=== PATIENT | male | born 1940 | race African-American/Black ===

== ENCOUNTER 2016-03-30 09:41 | Inpatient (IN) | payer MEDICARE, MEDICAID ==
[2016-03-24 11:28] LABS: APPEARANCE,URINE CLEAR; BILIRUBIN,URINE NEGATIVE (NEGATIVE); GLUCOSE, URINE NEGATIVE (NEGATIVE); KETONES,URINE NEGATIVE (NEGATIVE); LEUKOCYTE ESTERASE,URINE NEGATIVE (NEGATIVE); NITRITE,URINE NEGATIVE (NEGATIVE); PROTEIN,URINE NEGATIVE (NEGATIVE); URINE SPECIFIC GRAVITY 1.016; UROBILINOGEN,URINE NEGATIVE mg/dL (<2.0)
[2016-03-24 11:29] LABS: HEMATOCRIT 33.3 % (37.9-51.0); HEMOGLOBIN 11.4 g/dL (13.5-17.0); HGB HCT DIFFERENCE 0.9; MEAN CORPUSCULAR HEMOGLOBIN 30.1 pg (27.0-33.4); MEAN CORPUSCULAR HGB CONC 34.2 g/dL (32.0-36.0); MEAN CORPUSCULAR VOLUME 88 fl (80-97); RED BLOOD COUNT 3.78 10^6/uL (4.35-5.55); RED CELL DISTRIBUTION WIDTH 14.1 % (11.5-14.0); WHITE BLOOD COUNT 4.8 10^3/uL (4.0-10.5)
[2016-03-24 11:41] LABS: ANION GAP 12 (5-19); BLOOD UREA NITROGEN 26 mg/dL (7-20); CALCIUM 9.7 mg/dL (8.4-10.2); CARBON DIOXIDE 26 mmol/L (22-30); CHLORIDE 108 mmol/L (98-107); CREATININE RESULT 1.19 mg/dL (0.52-1.25); GLUCOSE 104 mg/dL (75-110); POTASSIUM 4.6 mmol/L (3.6-5.0); SODIUM 145.8 mmol/L (137-145)
[~2016-03-30 09:41] MED LIST: BUPIVACAINE INJ/PF LIPOSOME/PF 266 MG/20 ML SDV IJ PRN; BUPIVACAINE INJ/PF LIPOSOME/PF 266 MG/20 ML SDV ONE; CEFAZOLIN INJ 1 GM VIAL ONE; IBUPROFEN 800 MG in NORMAL SALINE 250 ML IV PRN; LACTATED RINGERS 1000 ML IV PRN; LANSOPRAZOLE 15 MG TAB.RAP.DR PO PRN; LIDOCAINE 0.5% INJ-PF (5 MG/ML) 50 ML SDV SUBCUT PRN; OXYCODONE HCL SR 10 MG TABLET PO PRN; SCOPOLAMINE HYDROBROMIDE 1.5 MG PATCH.TD72 TD PRN; THROMBIN (BOVINE) 5000 UNIT EPITAXIS KIT ONE; THROMBIN (BOVINE) TOPICAL 20000 UNIT VIAL ONE; VANCOMYCIN HCL 1,000 MG in DEXTROSE 5%-WATER 250 ML IV PRN
[2016-03-30] MEDS ORDERED: MIDAZOLAM 2 MG/2 ML INJ ONE ×2 (11:02)
[2016-03-30] MEDS ORDERED: FENTANYL CITRATE INJ/PF 100 MCG/2 ML AMPUL ONE (11:02)
[2016-03-30] MEDS ORDERED: PROPOFOL INJ 200 MG/20 ML VIAL IV ONE (11:03)
[2016-03-30] MEDS ORDERED: TRANEXAMIC ACID INJ/PF 1,000 MG/10 ML SDV IV ONE ×2 (11:37→15:10)
[2016-03-30] MEDS ORDERED: FLUTICASONE FUROATE NS PRN (12:01)
[2016-03-30] MEDS ORDERED: (PENDING PHARMACY ID) (Levocetirizine Dihydrochloride [Xyzal 5 Mg Tablet] 5 MG) PO PRN (12:01)
[2016-03-30] MEDS ORDERED: ACETAMINOPHEN 325 MG TABLET PO PRN (12:02)
[2016-03-30] MEDS ORDERED: ONDANSETRON 4 MG TAB.RAPDIS PO PRN (12:02)
[2016-03-30] MEDS ORDERED: OXYCODONE HCL IR 5 MG TABLET PO PRN (12:02)
[2016-03-30] MEDS ORDERED: ZOLPIDEM TARTRATE 5 MG TABLET PO PRN (12:02)
[2016-03-30] MEDS ORDERED: DIPHENHYDRAMINE HCL 50 MG/ML VIAL IV PRN (12:02)
[2016-03-30] MEDS ORDERED: ONDANSETRON HCL INJ/PF 4 MG/2 ML SDV IV PRN (12:02)
[2016-03-30] MEDS ORDERED: MAG HYDROX/AL HYDROX/SIMETH SUSP 30 ML UDCUP PO PRN (12:02)
[2016-03-30] MEDS ORDERED: MORPHINE SULFATE 10 MG/ML INJ IM PRN (12:02)
[2016-03-30] MEDS ORDERED: RINGERS SOLUTION,LACTATED 1,000 ML IV PRN (12:02)
[2016-03-30] MEDS ORDERED: MORPHINE SULFATE 10 MG/ML INJ IV PRN ×3 (12:02)
--- NOTE | 2016-03-30 12:10 | Operative Report ---
Operative Report DATE OF SURGERY: 03/30/16 PREOPERATIVE DIAGNOSIS: Left hip arthritis OPERATION: Left hip arthroplasty SURGEON: ELENA MELO ANESTHESIA: Spinal TISSUE REMOVED OR ALTERED: Bone to pathology ESTIMATED BLOOD LOSS: 100 PROCEDURE: Implants used: Femur: Striker Accolade 2 stem size #4 Acetabular shell: 54 mm hemispherical shell Liner:. 36 mm flat cross-link polyethylene liner Head: 36 mm chrome cobalt head -5 neck extension The patient is placed in a right lateral decubitus position on the operating table. The left lower extremity and hindquarter is prepped and draped in a sterile fashion. A curvilinear incision was made over the greater trochanter a posterior approach the hip was taken. The femoral head is dislocated and the femoral neck transected using an oscillating saw. Attention was next turned to the acetabulum. Soft tissues cleared off the acetabulum using electrocautery. The acetabulum was then prepared using a series of hemispherical reamers until a 53 millimeters reamer is seated. Subsequently a 54 millimeters Reinaldo titanium hemispherical shell is impacted into position and secured with one screw. A standard flat 36 millimeters cross- link liner is impacted into the shell. Attention was next turned to the femur. Access is gained to the femoral canal using a box osteotome to the piriformis fossa. The femur is then prepared using a series of broaches until a number for broach is seated. A trial reduction was now performed using a 36 millimeters head with -5 neck. Preoperative leg length was recreated and is excellent anterior posterior stability. A decision was made to proceed with the above construct. All trial implants were removed. The wound is irrigated with pulsed lavage. A number 4 stem is impacted into the femoral canal. A trial reduction was again performed with a 36 mm head and a -5 neck. Findings as previously. The hip was dislocated one last time and the final chrome-cobalt head is impacted onto the trunnion. The hip was reduced. Wound is copiously irrigated with pulsed lavage. Sent closed in layers using interrupted Vicryl followed by suresh. A sterile dressing is applied and the patient's returned to recovery room in satisfactory patient.
[2016-03-30] MEDS ORDERED: CETIRIZINE 5 MG TABLET PO PRN (12:26)
[2016-03-30] MEDS ORDERED: FLUTICASONE NASAL SPRAY 50 MCG/SPRY 120 SPRAY/16 GM NASL PRN (12:34)
[2016-03-30] MEDS ORDERED: METOCLOPRAMIDE HCL INJ/PF 10 MG/2 ML SDV ONE (14:39)
[2016-03-30] MEDS ORDERED: PHENYLEPHRINE HCL INJ/PF 10 MG/1 ML SDV ONE (14:39)
[2016-03-30] MEDS ORDERED: GLYCOPYRROLATE INJ 0.4 MG/2 ML VIAL ONE (14:39)
[2016-03-30] MEDS ORDERED: LIDOCAINE 2% INJ-PF (20 MG/ML) 10 ML AMPUL ONE (14:39)
[2016-03-30] MEDS ORDERED: ONDANSETRON HCL INJ/PF 4 MG/2 ML SDV ONE (14:39)
[2016-03-30] MEDS: SENNOSIDES/DOCUSATE 8.6-50 MG 1 EACH TABLET PO SCH (18:00)
[2016-03-30] MEDS: TIZANIDINE HCL 4 MG TABLET PO SCH (18:00)
[2016-03-30] MEDS: OXYCODONE HCL SR 10 MG TABLET PO SCH (21:48)
[2016-03-30] MEDS: TRAZODONE HCL 50 MG TABLET PO SCH (21:49)
[2016-03-30] MEDS: RIVAROXABAN 10 MG TABLET PO SCH (21:49)
[2016-03-30] MEDS: IBUPROFEN 800 MG in NORMAL SALINE 250 ML IV SCH (21:49)
[2016-03-30] MEDS: SIMVASTATIN 40 MG TABLET PO SCH (21:49)
[2016-03-31] MEDS ORDERED: VANCOMYCIN HCL 1,000 MG in DEXTROSE 5%-WATER 250 ML IV ONE ×2
[2016-03-31 05:25] LABS: HEMATOCRIT 24.5 % (37.9-51.0); HEMOGLOBIN 8.6 g/dL (13.5-17.0); HGB HCT DIFFERENCE 1.3; MEAN CORPUSCULAR HEMOGLOBIN 30.4 pg (27.0-33.4); MEAN CORPUSCULAR VOLUME 87 fl (80-97); RED BLOOD COUNT 2.83 10^6/uL (4.35-5.55); RED CELL DISTRIBUTION WIDTH 13.9 % (11.5-14.0); WHITE BLOOD COUNT 4.4 10^3/uL (4.0-10.5)
[2016-03-31 05:40] LABS: ANION GAP 9 (5-19); BLOOD UREA NITROGEN 17 mg/dL (7-20); CALCIUM 8.5 mg/dL (8.4-10.2); CARBON DIOXIDE 25 mmol/L (22-30); CHLORIDE 103 mmol/L (98-107); CREATININE RESULT 1.09 mg/dL (0.52-1.25); GLUCOSE 101 mg/dL (75-110); POTASSIUM 3.8 mmol/L (3.6-5.0); SODIUM 136.6 mmol/L (137-145)
[2016-03-31] MEDS: LANSOPRAZOLE 30 MG TAB.RAP.DR PO SCH (05:54)
[2016-03-31] MEDS: IBUPROFEN 800 MG in NORMAL SALINE 250 ML IV SCH ×3 (05:54→21:43)
--- NOTE | 2016-03-31 06:49 | PDOC PROGRESS REPORT ---
Subjective Progress Note for:: 03/31/16 Subjective:: Patient denies any discomfort Physical Exam Vital Signs: Temp Pulse Resp BP Pulse Ox 37.3 C 89 19 106/58 L 97 03/31/16 03:58 03/31/16 03:58 03/31/16 03:58 03/31/16 03:58 03/31/16 03:58 Intake & Output 03/29/16 03/30/16 03/31/16 06:59 06:59 06:59 Intake Total 7734 Output Total 3150 Balance 4584 General appearance: PRESENT: no acute distress Head exam: PRESENT: normocephalic Respiratory exam: PRESENT: unlabored Cardiovascular exam: PRESENT: RRR Pulses: PRESENT: +1 pedal pulses bilateral Vascular exam: PRESENT: normal capillary refill Extremities exam: PRESENT: other - Left hip dressing is clean dry and intact. Leg lengths are equal. Neurovascular examinations intact. Results Laboratory Results: 03/31/16 04:57 03/31/16 04:57 03/30/16 03/30/16 03/31/16 10:14 10:14 04:57 WBC 4.4 RBC 2.83 L Hgb 8.6 L Hct 24.5 L MCV 87 MCH 30.4 MCHC 35.0 RDW 13.9 Plt Count 100 L Sodium Potassium 3.8 Chloride Carbon Dioxide Anion Gap BUN Creatinine Est GFR ( Amer) Est GFR (Non-Af Amer) Glucose Calcium Blood Type O POSITIVE Antibody Screen NEGATIVE 03/31/16 04:57 WBC RBC Hgb Hct MCV MCH MCHC RDW Plt Count Sodium 136.6 L Potassium 3.8 Chloride 103 Carbon Dioxide 25 Anion Gap 9 BUN 17 Creatinine 1.09 Est GFR ( Amer) > 60 Est GFR (Non-Af Amer) > 60 Glucose 101 Calcium 8.5 Blood Type Antibody Screen Impressions: Pelvis X-Ray 03/30/16 12:03 IMPRESSION: SATISFACTORY POSTOPERATIVE LEFT HIP. Status: Imported from PACS Assessment & Plan - Diagnosis (1) Arthritis of left hip Is this a current diagnosis for this admission?: YesPlan: 76-year-old black male postop day 1 status post left hip arthroplasty. Plan will be for mobilization with physical therapy on a weightbearing as tolerated basis. - Time Time Spent with patient: 15-24 minutes Anticipated discharge: SNF Within: within 48 hours
[2016-03-31] MEDS ORDERED: (PENDING PHARMACY ID) (Valsartan/Hydrochlorothiazide [Valsartan-Hctz 160-12.5 Mg Tab] 1 EA PO SCH (08:00)
[2016-03-31] MEDS: PRENATAL VITAMIN W-O CA NO5/FE FUMARATE/FA CAPSULE PO SCH (09:44)
[2016-03-31] MEDS: SENNOSIDES/DOCUSATE 8.6-50 MG 1 EACH TABLET PO SCH ×2 (09:45→17:21)
[2016-03-31] MEDS: VALSARTAN 160 MG TABLET PO SCH (09:45)
[2016-03-31] MEDS: OXYCODONE HCL SR 10 MG TABLET PO SCH ×2 (09:45→21:43)
[2016-03-31] MEDS: TIZANIDINE HCL 4 MG TABLET PO SCH ×2 (09:45→17:21)
[2016-03-31] MEDS: HYDROCHLOROTHIAZIDE 12.5 MG CAPSULE PO SCH (09:45)
[2016-03-31] MEDS: SIMVASTATIN 40 MG TABLET PO SCH (21:43)
[2016-03-31] MEDS: RIVAROXABAN 10 MG TABLET PO SCH (21:43)
[2016-03-31] MEDS: TRAZODONE HCL 50 MG TABLET PO SCH (21:43)
[2016-04-01] MEDS: LANSOPRAZOLE 30 MG TAB.RAP.DR PO SCH (05:20)
[2016-04-01] MEDS: IBUPROFEN 800 MG in NORMAL SALINE 250 ML IV SCH ×2 (05:21→13:03)
--- NOTE | 2016-04-01 07:08 | PDOC DISCHARGE SUMMARY ---
General - Admit/Disc Date/PCP Admission Date/Primary Care Provider: 03/30/16 09:41 HAYDE ARNULFO Discharge Date: 04/01/16 - Discharge Diagnosis (1) Arthritis of left hip Is this a current diagnosis for this admission?: Yes - Additional Information Resuscitation Status: Full Code Discharge Diet: As Tolerated Discharge Activity: Balance Activity w/Rest Home Medications: Levocetirizine Dihydrochloride [Xyzal 5 mg Tablet] 5 mg PO QAM PRN 03/23/16 Multivitamin [One-A-Day Essential] 1 each PO DAILY 03/23/16 Omeprazole 20 mg PO QAM 03/23/16 Ranitidine HCl [Zantac] 300 mg PO QHS 03/23/16 Simvastatin [Zocor 40 mg Tablet] 40 mg PO QHS 03/23/16 Tizanidine HCl 4 mg PO BID 03/23/16 Trazodone HCl [Desyrel 50 mg Tablet] 50 mg PO QHS 03/23/16 Valsartan/Hydrochlorothiazide [Valsartan-Hctz 160-12.5 mg Tab] 1 each PO QAM Fluticasone Furoate [Veramyst] 10 gm NS ASDIR PRN 03/25/16 Oxycodone HCl [Oxy-Ir 5 mg Tablet] 5 mg PO Q6HP PRN #0 tablet 04/01/16 Rivaroxaban [Xarelto 10 mg Tablet] 10 mg PO QHS #0 tablet 04/01/16 History of Present Illness Patient complains of: Patient's a 76-year-old black male with progressive left hip pain and functional disability secondary osteoarthritis. He is admitted for an elective left hip arthroplasty. History of Present Illness: VERÓNICA MEJIA is a 76 year old male Hospital Course Hospital Course: The patient's admitted through the operating room where he undergoes an uncomplicated left hip arthroplasty. His returned to floor in satisfactory condition. Makes excellent progress with physical therapy. Wound and dress rim. I remain clean dry and intact. Leg lengths are equal. Is distal neurovascular examinations intact. Hematocrit tips to 24.5% on postop day #1. Physical Exam Vital Signs: Temp Pulse Resp BP Pulse Ox 36.4 C 76 18 91/54 L 98 04/01/16 03:36 04/01/16 03:36 04/01/16 03:36 04/01/16 03:36 04/01/16 03:36 Intake & Output 03/31/16 04/01/16 04/02/16 06:59 06:59 06:59 Intake Total 7734 2894 Output Total 3150 1490 Balance 4584 1404 General appearance: PRESENT: no acute distress Head exam: PRESENT: normocephalic Eye exam: PRESENT: EOMI Respiratory exam: PRESENT: unlabored Cardiovascular exam: PRESENT: RRR Vascular exam: PRESENT: normal capillary refill GI/Abdominal exam: PRESENT: soft Rectal exam: PRESENT: deferred Extremities exam: PRESENT: other - Left lower extremity dressing is clean dry and intact. Leg lengths are equal. Distal neurovascular examinations intact. Neurological exam: PRESENT: alert, awake, oriented to person, oriented to place , oriented to time, oriented to situation. ABSENT: motor sensory deficit Results Laboratory Results: 03/31/16 04:57 03/31/16 04:57 Impressions: Pelvis X-Ray 03/30/16 12:03 IMPRESSION: SATISFACTORY POSTOPERATIVE LEFT HIP. Status: Imported from PACS Qualifiers [facility] BEING DISCHARGED WITH ANY OF THE FOLLOWING DIAGNOSIS?: No VTE patient discharged on overlapping Therapy?: Yes Plan Discharge Plan: Patient to be discharged home with home health nursing, home health physical therapy, we will Walker, bedside commode. Follow-up with Dr. Cha [facility] for surgery in approximately 2 weeks for staple removal. Time Spent: Less than 30 Minutes
[2016-04-01 07:46] LABS: HEMATOCRIT 22.3 % (37.9-51.0); MEAN CORPUSCULAR HEMOGLOBIN 30.5 pg (27.0-33.4); MEAN CORPUSCULAR HGB CONC 34.8 g/dL (32.0-36.0); MEAN CORPUSCULAR VOLUME 88 fl (80-97); RED BLOOD COUNT 2.54 10^6/uL (4.35-5.55); WHITE BLOOD COUNT 4.7 10^3/uL (4.0-10.5)
[2016-04-01 08:21] LABS: HGB HCT DIFFERENCE 1.1
[2016-04-01 08:28] LABS: HEMOGLOBIN 7.8 g/dL (13.5-17.0)
[2016-04-01] MEDS: VALSARTAN 160 MG TABLET PO SCH (09:18)
[2016-04-01] MEDS: HYDROCHLOROTHIAZIDE 12.5 MG CAPSULE PO SCH (09:18)
[2016-04-01] MEDS: OXYCODONE HCL SR 10 MG TABLET PO SCH (09:18)
[2016-04-01] MEDS: SENNOSIDES/DOCUSATE 8.6-50 MG 1 EACH TABLET PO SCH ×2 (09:32→17:07)
[2016-04-01] MEDS: PRENATAL VITAMIN W-O CA NO5/FE FUMARATE/FA CAPSULE PO SCH (09:32)
[2016-04-01] MEDS: TIZANIDINE HCL 4 MG TABLET PO SCH ×2 (09:32→17:07)
[2016-04-01] MEDS: RIVAROXABAN 10 MG TABLET PO SCH (21:11)
[2016-04-01] MEDS: TRAZODONE HCL 50 MG TABLET PO SCH (21:11)
[2016-04-01] MEDS: SIMVASTATIN 40 MG TABLET PO SCH (21:11)
[2016-04-02] MEDS: LANSOPRAZOLE 30 MG TAB.RAP.DR PO SCH (05:27)
--- NOTE | 2016-04-02 06:58 | PDOC PROGRESS REPORT ---
Subjective Progress Note for:: 04/02/16 Subjective:: Patient with no new complaints Physical Exam Vital Signs: Temp Pulse Resp BP Pulse Ox 36.9 C 83 16 133/56 H 100 04/01/16 20:00 04/01/16 20:00 04/01/16 20:00 04/01/16 20:00 04/01/16 20:00 Intake & Output 03/31/16 04/01/16 04/02/16 06:59 06:59 06:59 Intake Total 7734 2894 2720 Output Total 3150 1490 1360 Balance 4584 1404 1360 Results Laboratory Results: 04/01/16 06:13 03/31/16 04:57 03/30/16 04/01/16 10:14 06:13 WBC 4.7 RBC 2.54 L Hgb 7.8 L Hct 22.3 L MCV 88 MCH 30.5 MCHC 34.8 RDW 14.0 Plt Count 96 L Blood Type O POSITIVE Antibody Screen NEGATIVE Impressions: Pelvis X-Ray 03/30/16 12:03 IMPRESSION: SATISFACTORY POSTOPERATIVE LEFT HIP. Assessment & Plan - Diagnosis (1) Arthritis of left hip Is this a current diagnosis for this admission?: YesPlan: Patient's discharge. Chest. It was held because of a low hematocrit. Patient is ready for discharge home this morning (2) Acute blood loss as cause of postoperative anemia Is this a current diagnosis for this admission?: YesPlan: Patient had an hematocrit 22% yesterday morning. He received 2 units of packed red blood cells overnight. - Time Time Spent with patient: 15-24 minutes Anticipated discharge: Home with Homehealth Within: within 24 hours
[2016-04-02 07:57] LABS: HEMATOCRIT 30.1 % (37.9-51.0); HGB HCT DIFFERENCE 1.4; MEAN CORPUSCULAR HEMOGLOBIN 30.4 pg (27.0-33.4); MEAN CORPUSCULAR HGB CONC 34.9 g/dL (32.0-36.0); MEAN CORPUSCULAR VOLUME 87 fl (80-97); RED BLOOD COUNT 3.45 10^6/uL (4.35-5.55); RED CELL DISTRIBUTION WIDTH 14.3 % (11.5-14.0)
[2016-04-02 08:16] LABS: HEMOGLOBIN 10.5 g/dL (13.5-17.0)
[2016-04-02] MEDS: SENNOSIDES/DOCUSATE 8.6-50 MG 1 EACH TABLET PO SCH (09:09)
[2016-04-02] MEDS: TIZANIDINE HCL 4 MG TABLET PO SCH (09:09)
[2016-04-02] MEDS: HYDROCHLOROTHIAZIDE 12.5 MG CAPSULE PO SCH (09:09)
[2016-04-02] MEDS: PRENATAL VITAMIN W-O CA NO5/FE FUMARATE/FA CAPSULE PO SCH (09:11)
[2016-04-02 13:20] VITALS: BP 133/56
== END 2016-04-02 15:00 | disposition home health service (06) | DRG 470 ==
LOC: INOR 09:41 → 4S 16:06 → 4N 04-01 19:58
PROVIDERS: ADMIT Orthopaedic Surgery; ATTEND Orthopaedic Surgery
PROC: 0SRB02Z Replacement of Left Hip Joint with Metal on Polyethylene Synthetic Substitute, Open Approach (ICD-10-PCS; principal; 2016-03-30 11:15)
PROC: 30233N1 Transfusion of Nonautologous Red Blood Cells into Peripheral Vein, Percutaneous Approach (ICD-10-PCS; 2016-04-01)
DX: M16.12 Unilateral primary osteoarthritis, left hip (principal); D62 Acute posthemorrhagic anemia; I10 Essential (primary) hypertension; E78.2 Mixed hyperlipidemia; E78.00 Pure hypercholesterolemia, unspecified; J44.9 Chronic obstructive pulmonary disease, unspecified; K21.9 Gastro-esophageal reflux disease without esophagitis; Z79.899 Other long term (current) drug therapy; Z82.49 Family history of ischemic heart disease and other diseases of the circulatory system; Z83.3 Family history of diabetes mellitus; Z80.9 Family history of malignant neoplasm, unspecified; Z85.46 Personal history of malignant neoplasm of prostate; Z90.79 Acquired absence of other genital organ(s); Z87.11 Personal history of peptic ulcer disease
CPT/HCPCS: 01214; 36415; 36430; 72170; 80048; 81001; 84132; 85027; 86850; 86900; 86901; 86920; 88304; 88311; 94799; C1713; C9290; G8978-GP; G8979-GP; G8987-GO; G8988-GO; J0690; J1741; J2250; J2370; J2405; J2704; J2765; J3010; J3370; J3490; J7050; J7060; P9016